=== PATIENT | female | born 1980 | race Caucasian/White ===

== ENCOUNTER 2021-09-16 08:10 | Outpatient (CLI) | payer BC, SELFPAY ==
--- NOTE | 2021-09-16 08:20 | NM_ITS ---
WS: [id number] NUCLEAR MEDICINE 24 HOUR I-123 THYROID UPTAKE INDICATION: Thyroid nodule TECHNIQUE: I-123 24 HOUR THYROID UPTAKE WITH PLANAR IMAGING. 136 [facility] 123 COMPARISON: Outside ultrasound report August 20, 2021 FINDINGS: Normal 24 hour uptake 22.6%. No visualized hot or cold nodules to correspond to the outside report. Nodules described on the outsi de ultrasound report are subcentimeter in size with the largest described 6 mm. No images available. NORMAL 24H THRYOID UPTAKE 8-35% NM/NM thyroid uptake multi [id number] IMPRESSION: Normal 24 hour thyroid uptake measuring 22.6%
== END 2021-09-16 08:11 | disposition home or self-care (01) ==
PROVIDERS: PCP Nurse Practitioner Family; Visit Provider Nurse Practitioner Family
DX: E04.1 Nontoxic single thyroid nodule (principal)
CPT/HCPCS: 78014; A9516